=== PATIENT | female | born 1980 | race African-American/Black ===

== ENCOUNTER 2025-01-31 14:12 | Emergency (ER) | payer OTHER ==
--- NOTE | 2025-01-31 14:25 | ED ---
Extremity Problem HPI - General Chief complaint: Extremity Problem,Nontraumatic Stated complaint: right calf pain, abdominal pain Time Seen by Provider: 01/31/25 14:24 Source: patient, RN notes reviewed Mode of arrival: ambulatory Limitations: no limitations - History of Present Illness Initial comments: 44-year-old female presented to the ER for evaluation of right calf pain. Patient sent by [facility] for evaluation of this. She is currently into [facility] for heroin abuse. She reports over the past week she has been having progressively worsening right calf tenderness. She states pain is worse while ambulating. She denies any known injuries. Patient denies recent travel, blood thinner use, chest pain, palpitations or shortness of breath. Patient also endorsing right upper quadrant abdominal tenderness. She states has been going on for a while and she has been following up with her PCP. She admits to mild nausea denies vomiting. Denies diarrhea, constipation, fevers, chills, urinary complaints or other complaints. No abnormal vaginal bleeding or discharge she has not taken anything for pain at this time. Currently rating her Pain a 7 out of 10 no paresthesias. - Related Data Allergies Allergy/AdvReac Type Severity Reaction Status Date / Time No Known Allergies Allergy Verified 01/31/25 14:18 Review of Systems ROS Statement: Those systems with pertinent positive or pertinent negative responses have been documented in the HPI. ROS Other: All systems not noted in ROS Statement are negative. Past Medical History Past Medical History: Asthma Additional Past Medical History / Comment(s): ectopic Smoking Status: Current every day smoker Past Alcohol Use History: Daily Past Drug Use History: Heroin General Exam Limitations: no limitations General appearance: alert, in no apparent distress Respiratory exam: Present: normal lung sounds bilaterally. Absent: respiratory distress, wheezes, rales, rhonchi, stridor Cardiovascular Exam: Present: regular rate, normal rhythm, normal heart sounds. Absent: systolic murmur, diastolic murmur, rubs, gallop, clicks GI/Abdominal exam: Present: soft, tenderness (Right upper quadrant), normal bowel sounds Extremities exam: Present: normal inspection, full ROM, normal capillary refill (2+ right DP pulse), calf tenderness (Right) Neurological exam: Present: alert, oriented X3, CN II-XII intact Skin exam: Present: warm, dry, intact, normal color. Absent: rash Course Vital Signs 01/31/25 01/31/25 14:14 17:00 Temperature 98.0 F 98.3 F Pulse Rate 68 52 L Respiratory 22 18 Rate Blood Pressure 100/67 120/72 O2 Sat by Pulse 100 100 Oximetry Medical Decision Making - Medical Decision Making Was pt. sent in by a medical professional or institution (ANAM Yi, SENIOR SERVICE TECHNICIAN, urgent care, hospital, or correction...) When possible be specific @ -No Did you speak to anyone other than the patient for history (EMS, parent, family, police, friend...)? What history was obtained from this source @ -No Did you review nursing and triage notes (agree or disagree)? Why? @ -I reviewed and agree with nursing and triage notes Were old charts reviewed (outside hosp., previous admission, EMS record, old EKG, old radiological studies, urgent care reports/EKG's, correction records)? Report findings @ -No old charts were reviewed Differential Diagnosis (chest pain, altered mental status, abdominal pain women, abdominal pain men, vaginal bleeding, weakness, fever, dyspnea, syncope, headache, dizziness, GI bleed, back pain, seizure, CVA, palpatations, mental health, musculoskeletal)? @ -Differential Musculoskeletal: Muscular strain, contusion, ligament sprain, fracture, arthritis, septic arthritis, bursitis, cellulitis, muscle spasm, nerve compression, DVT, arterial occlusion, herpes zoster, electrolyte abnormality, tumor.... This is not meant to be in all inclusive list EKG interpreted by me (3pts min.). @ -None done X-rays interpreted by me (1pt min.). @ -None done CT interpreted by me (1pt min.). @ -None done U/S interpreted by me (1pt. min.). @ -Ultrasound venous Doppler right lower extremity negative for acute evidence of DVT. Gallbladder ultrasound showing hepatomegaly. No common bile duct or gallbladder wall thickening What testing was considered but not performed or refused? (CT, X-rays, U/S, labs)? Why? @ -None What meds were considered but not given or refused? Why? @ -None Did you discuss the management of the patient with other professionals (professionals i.e. ANAM Yi, SENIOR SERVICE TECHNICIAN, lab, RT, psych nurse, social insurance analyst, rag inspector, teacher, navy airspace officer, telephonic case manager)? Give summary @ -No Was smoking cessation discussed for >3mins.? @ -No Was critical care preformed (if so, how long)? @ -No Were there social determinants of health that impacted care today? How? (Homelessness, low income, unemployed, alcoholism, drug addiction, transportation, low edu. Level, literacy, decrease access to med. care, skilled nursing, rehab)? @ -Patient currently residing at [facility] for heroin abuse. Was there de-escalation of care discussed even if they declined (Discuss DNR or withdrawal of care, Hospice)? DNR status @ -No What co-morbidities impacted this encounter? (DM, HTN, Smoking, COPD, CAD, Cancer, CVA, ARF, Chemo, Hep., AIDS, mental health diagnosis, sleep apnea, morbid obesity)? @ -None Was patient admitted / discharged? Hospital course, mention meds given and route, prescriptions, significant lab abnormalities, going to OR and other pertinent info. @ -[Discharge. 44-year-old female presenting to the ER for evaluation of right And right upper quadrant abdominal pain. Upon arrival vital signs stable patient no signs acute distress nontoxic-appearing. Patient is neurovascularly intact. Abdominal exam remarkable for right upper quadrant abdominal tenderness without rebound or guarding. Normal bowel sounds. There are no overlying rash or wounds. Laboratory studies obtained remarkable for WBC of 13.08. CMP unimpressive. Urinalysis with 23 WBCs and 10 RBCs sample is contaminated with 13 epithelial cells. Urine sent for culture prior to antibiotic initiation as patient denied any current urinary complaints. Patient is agreeable. Urine hCG negative. Ultrasound is Doppler right lower extremity negative for acute evidence of DVT. Gallbladder ultrasound showing hepatomegaly with no acute f indings. Patient provided with symptomatic treatment in the ER, with improvement. Upon reevaluation, patient sleeping in exam and no signs of acute distress. Patient requesting food which was provided. Patient able to bear weight on right lower extremity. Patient tolerating oral intake and will be discharged back to [facility] in stable condition. Return parameters discussed. Patient verbally expressed understanding and agreement with care plan. Case discussed with ED attending, Dr. Carrasco. Undiagnosed new problem with uncertain prognosis? @ -No Drug Therapy requiring intensive monitoring for toxicity (Heparin, Nitro, Insulin, Cardizem)? @ -No Were any procedures done? @ -No Diagnosis/symptom? @ -Calf pain/abdominal pain/hepatomegaly Acute, or Chronic, or Acute on Chronic? @ -Acute Uncomplicated (without systemic symptoms) or Complicated (systemic symptoms)? @ -Uncomplicated Side effects of treatment? @ -No Exacerbation, Progression, or Severe Exacerbation? @ -No Poses a threat to life or bodily function? How? (Chest pain, [place], HI, pneumonia, PE, COPD, DKA, ARF, appy, cholecystitis, CVA, Diverticulitis, Homicidal, Suicidal, threat to staff... and all critical care pts) @ -No - Lab Data Result diagrams: 01/31/25 15:01 01/31/25 15:01 Lab Results 01/31/25 01/31/25 01/31/25 Range/Units 15:01 15:01 15:01 WBC 13.08 H (4.50-10.00) 10*3/uL RBC 3.99 L (4.10-5.20) 10*6/uL Hgb 12.5 (12.0-15.0) g/dL Hct 36.0 L (37.2-46.3) % MCV 90.2 (80.0-97.0) fL MCH 31.3 (27.0-32.0) pg MCHC 34.7 (32.0-37.0) g/dL Plt Count 293 (140-440) 10*3/uL MPV 9.3 L (9.5-12.2) fL Immature Gran % (Auto) 1.1 % Neutrophils % 67.4 % Lymphocytes % 21.2 % Monocytes % 7.3 % Eosinophils % 2.7 % Basophils % 0.3 % Immature Gran # 0.15 H (0.00-0.04) 10*3/uL Neutrophils # 8.81 H (1.80-7.70) 10*3/uL Lymphocytes # 2.77 (0.90-5.00) 10*3/uL Monocytes # 0.96 (0.20-1.00) 10*3/uL Eosinophils # 0.35 (0.04-0.35) 10*3/uL Basophils # 0.04 (0.00-0.10) 10*3/uL Sodium (137-145) mmol/L Potassium (3.5-5.1) mmol/L Chloride (98-107) mmol/L Carbon Dioxide (22-30) mmol/L Anion Gap mmol/L BUN (7-17) mg/dL Creatinine (0.52-1.04) mg/dL Est GFR (CKD-EPI)AfAm (>60 ml/min/1.73 sqM) Est GFR (CKD-EPI)NonAf (>60 ml/min/1.73 sqM) Glucose (74-99) mg/dL Plasma Lactic Acid Omero (0.7-2.0) mmol/L Calcium (8.4-10.2) mg/dL Total Bilirubin (0.2-1.3) mg/dL AST (14-36) U/L ALT (4-34) U/L Alkaline Phosphatase (38-126) U/L Total Protein (6.3-8.2) g/dL Albumin (3.5-5.0) g/dL Amylase (30-110) U/L Lipase (23-300) U/L Urine Color Light Yellow Urine Appearance Cloudy H (Clear) Urine pH 5.5 (5.0-8.0) Ur Specific [place] 1.013 (1.001-1.035) Urine Protein Negative (Negative) Urine Glucose (UA) Negative (Negative) Urine Ketones Negative (Negative) Urine Blood Negative (Negative) Urine Nitrite Negative (Negative) Urine Bilirubin Negative (Negative) Urine Urobilinogen <2.0 (<2.0) mg/dL Ur Leukocyte Esterase Large H (Negative) Urine RBC 10 H (0-5) /hpf Urine WBC 23 H (0-5) /hpf Ur Squamous Epith Cells 13 H (0-4) /hpf Urine Mucus Rare H (None) /hpf Urine HCG, Qual Not Detected (Not Detectd) 01/31/25 01/31/25 Range/Units 15:01 15:01 WBC (4.50-10.00) 10*3/uL RBC (4.10-5.20) 10*6/uL Hgb (12.0-15.0) g/dL Hct (37.2-46.3) % MCV (80.0-97.0) fL MCH (27.0-32.0) pg MCHC (32.0-37.0) g/dL Plt Count (140-440) 10*3/uL MPV (9.5-12.2) fL Immature Gran % (Auto) % Neutrophils % % Lymphocytes % % Monocytes % % Eosinophils % % Basophils % % Immature Gran # (0.00-0.04) 10*3/uL Neutrophils # (1.80-7.70) 10*3/uL Lymphocytes # (0.90-5.00) 10*3/uL Monocytes # (0.20-1.00) 10*3/uL Eosinophils # (0.04-0.35) 10*3/uL Basophils # (0.00-0.10) 10*3/uL Sodium 137 (137-145) mmol/L Potassium 4.3 (3.5-5.1) mmol/L Chloride 104 (98-107) mmol/L Carbon Dioxide 27 (22-30) mmol/L Anion Gap 6 mmol/L BUN 17 (7-17) mg/dL Creatinine 0.76 (0.52-1.04) mg/dL Est GFR (CKD-EPI)AfAm >90 (>60 ml/min/1.73 sqM) Est GFR (CKD-EPI)NonAf >90 (>60 ml/min/1.73 sqM) Glucose 125 H (74-99) mg/dL Plasma Lactic Acid Omero 0.8 (0.7-2.0) mmol/L Calcium 8.8 (8.4-10.2) mg/dL Total Bilirubin 0.5 (0.2-1.3) mg/dL AST 32 (14-36) U/L ALT 26 (4-34) U/L Alkaline Phosphatase 66 (38-126) U/L Total Protein 6.8 (6.3-8.2) g/dL Albumin 4.0 (3.5-5.0) g/dL Amylase 64 (30-110) U/L Lipase 97 (23-300) U/L Urine Color Urine Appearance (Clear) Urine pH (5.0-8.0) Ur Specific [place] (1.001-1.035) Urine Protein (Negative) Urine Glucose (UA) (Negative) Urine Ketones (Negative) Urine Blood (Negative) Urine Nitrite (Negative) Urine Bilirubin (Negative) Urine Urobilinogen (<2.0) mg/dL Ur Leukocyte Esterase (Negative) Urine RBC (0-5) /hpf Urine WBC (0-5) /hpf Ur Squamous Epith Cells (0-4) /hpf Urine Mucus (None) /hpf Urine HCG, Qual (Not Detectd) - Radiology Data Radiology results: report reviewed, image reviewed Disposition Clinical Impression: Calf pain, Hepatomegaly Disposition: HOME SELF-CARE Condition: Stable Additional Instructions: Follow-up closely with PCP. Return to the ER for any new or worsening concerns. Is patient prescribed a controlled substance at d/c from ED?: No Referrals: None,Stated [Primary Care Provider] - 1-2 days Forms: Area PCPs Time of Disposition: 16:47
[2025-01-31 15:12] LABS: Basophils # (A) 0.04 10*3/uL (0.00-0.10); Basophils % (A) 0.3 %; Eosinophils # (A) 0.35 10*3/uL (0.04-0.35); Eosinophils % (A) 2.7 %; HCT 36.0 % (37.2-46.3); HGB 12.5 g/dL (12.0-15.0); Lymphocytes # (A) 2.77 10*3/uL (0.90-5.00); Lymphocytes % (A) 21.2 %; MCH 31.3 pg (27.0-32.0); MCHC 34.7 g/dL (32.0-37.0); MCV 90.2 fL (80.0-97.0); Monocytes # (A) 0.96 10*3/uL (0.20-1.00); Monocytes % (A) 7.3 %; Neutrophils # (A) 8.81 10*3/uL (1.80-7.70); Neutrophils % (A) 67.4 %; Platelet Count 293 10*3/uL (140-440); RBC 3.99 10*6/uL (4.10-5.20); RDW 14.9 % (11.5-14.5); WBC 13.08 10*3/uL (4.50-10.00)
[2025-01-31 15:25] LABS: ALT 26 U/L (4-34); AST 32 U/L (14-36); African American GFR (CKD) >90 (>60 ml/min/1.73 sqM); Albumin 4.0 g/dL (3.5-5.0); Alkaline Phosphatase 66 U/L (38-126); Amylase 64 U/L (30-110); Anion Gap 6 mmol/L; Blood Urea Nitrogen 17 mg/dL (7-17); Calcium 8.8 mg/dL (8.4-10.2); Carbon Dioxide 27 mmol/L (22-30); Chloride 104 mmol/L (98-107); Glucose 125 mg/dL (74-99); Lipase 97 U/L (23-300); Non-African American GFR(CKD) >90 (>60 ml/min/1.73 sqM); Potassium 4.3 mmol/L (3.5-5.1); Sodium 137 mmol/L (137-145); Total Protein 6.8 g/dL (6.3-8.2)
[2025-01-31 15:28] LABS: Bilirubin,Urine Negative (Negative); Blood,Urine Negative (Negative); Color,Urine Light Yellow; Glucose,Urine (UA) Negative (Negative); Ketones,Urine Negative (Negative); Leukocyte Esterase,Urine Large (Negative); Mucus,Urine Rare /hpf; Nitrite,Urine Negative (Negative); PH, Urine 5.5 (5.0-8.0); Protein,Urine Negative (Negative); RBC,Urine 10 /hpf (0-5); Specific Gravity,Urine 1.013 (1.001-1.035); Squamous Epithelial Cell,Urine 13 /hpf (0-4); Urobilinogen,Urine <2.0 mg/dL (<2.0); WBC,Urine 23 /hpf (0-5)
[2025-01-31] MEDS: KETOROLAC 15 MG/ML 1 ML VIAL IVP STA (16:02)
[2025-01-31] MEDS: SODIUM CHLORIDE 0.9% 1,000 ML IV ONE (16:04)
[2025-01-31] MEDS: FAMOTIDINE 20 MG/2 ML VIAL IV STA (16:05)
--- NOTE | 2025-01-31 16:25 | US ---
EXAMINATION TYPE: US gallbladder DATE OF EXAM: 01/31/2025 COMPARISON: NONE CLINICAL INDICATION: Female, 44 years old with history of RUQ abd pain; Abdominal pain TECHNIQUE: Grayscale and color Doppler imaging of the right upper quadrant was performed. FINDINGS: EXAM MEASUREMENTS: Liver Length: 20.5 cm. Normal is 15.5 cm. Gallbladder Wall: 0.3 cm CBD: 0.5 cm Right Kidney: 10.5 x 4.4 x 4.7 cm Pancreas: limited due to overlying bowel gas Liver: enlarged Gallbladder: contracted Evidence for sonographic Rowe's sign: no CBD: appears wnl Right Kidney: no evidence of hydronephrosis IMPRESSION: 1. Hepatomegaly. [facility], , 01/31/2025 4:22 PM
--- NOTE | 2025-01-31 16:26 | US ---
EXAMINATION TYPE: US venous doppler duplex LE RT DATE OF EXAM: 01/31/2025 3:43 PM COMPARISON: NONE CLINICAL INDICATION: Female, 44 years old with history of calf pain and swelling; Right leg pain TECHNIQUE: The lower extremity deep venous system is examined utilizing real time linear array sonog wisam with graded compression, doppler sonography and color-flow sonography. Grayscale, color doppler , spectral doppler imaging performed of the deep veins of the lower extremities FINDINGS: SIDE PERFORMED: right VESSELS IMAGED: Common Femoral Vein Deep Femoral Vein Greater Saphenous Vein * Femoral Vein Popliteal Vein Small Saphenous Vein * Proximal Calf Veins (* superficial vessels) Right Leg: No evidence of DVT; There is normal flow, compressibility, vascular waveforms. IMPRESSION: 1. Right lower extremity ultrasound negative for deep venous thrombosis. [facility], , 01/31/2025 4:23 PM
[2025-01-31 17:17] VITALS: BP 120/72; PULSE 52; RESP 18; TEMP 98.3
== END 2025-01-31 17:17 | disposition home or self-care (01) ==
LOC: EC 14:12
CPT/HCPCS: 36415; 76705; 80053; 81001; 81025; 82150; 83605; 83690; 85025; 87086; 96361; 96374; 96375; 99284